=== PATIENT | female | born 1985 | race Caucasian/White ===

== ENCOUNTER 2023-10-29 18:32 | Emergency (ER) | payer MEDICARE, SELFPAY ==
--- NOTE | ~2023-10-29 | XR_ITS ---
EXAMINATION: XR chest 1V portable 10/29/2023 19:51 INDICATION: Chest pain PROCEDURE: AP portable chest COMPARISON: No prior studies for comparison. FINDINGS: The lungs are clear. The cardiomediastinal silhouette is within normal limits. There are no pleural effusions. There is no pneumothorax suspected. IMPRESSION: 1: NO ACUTE CARDIOPULMONARY DISEASE. Reviewed, dictated and finalized at location A.
[2023-10-29 18:33] VITALS: BP 137/117; PULSE 77; RESP 16; TEMP 36.6; O2SAT 98
[2023-10-29 18:53] VITALS: PULSE 70
--- NOTE | 2023-10-29 18:58 | ECG_ITS ---
SEE SCANNED COPY FOR CONFIRMED REPORT MTDD
[2023-10-29 19:13] LABS: Basophils Absolute Auto 0.04 K/mm3 (0.00-0.10); Basophils Percent Auto 0.4 % (0.0-1.0); Eosinophils Absolute Auto 0.17 K/mm3 (0.02-0.50); Eosinophils Percent Auto 1.9 % (1.0-6.0); Hematocrit 40.3 % (35.0-49.0); Hemoglobin 13.5 g/dL (12.0-15.0); Immature Granulocyte Absolute 0.02 K/mm3 (0.00-0.00); Immature Granulocyte Percent A 0.2 % (0.0-0.0); Lymphocytes Absolute Auto 3.26 K/mm3 (1.10-4.50); Lymphocytes Percent Auto 35.7 % (18.0-42.0); Mean Corpuscular HGB Conc 33.5 g/dL (32-36); Mean Corpuscular Hemoglobin 30.5 pg (27.0-31.0); Mean Platelet Volume 9.5 fl (9.2-11.8); Monocytes Absolute Auto 0.65 K/mm3 (0.10-0.90); Monocytes Percent Auto 7.1 % (2.0-11.0); Neutrophils Absolute Auto 4.99 K/mm3 (1.70-7.20); Neutrophils Percent Auto 54.7 % (50.0-70.0); Platelet Count Result 337 K/mm3 (150-420); Red Blood Count 4.43 M/mm3 (4.20-5.40); White Blood Count 9.1 K/mm3 (4.8-10.8)
[2023-10-29 19:29] LABS: D Dimer 0.19 mg/L (0.19-0.50); INR 0.9; Partial Thromboplastin Time 24.3 Sec (23.9-30.70); Prothrombin Time 10.3 Seconds (9.50-12.1)
[2023-10-29 19:39] LABS: Alanine Aminotransferase 27 U/L (14-59); Albumin Level 3.5 g/dL (3.4-5.0); Alkaline Phosphatase 57 U/L (46-116); Anion Gap 10 mmol/L (4-12); Aspartate Amino Transferase < 10 U/L (15-37); Bilirubin,Total 0.3 mg/dL (0.00-1.00); Blood Urea Nitrogen 13 mg/dL (7-18); Calcium 8.9 mg/dL (8.5-10.1); Carbon Dioxide 27 mmol/L (21-32); Chloride 106 mmol/L (98-108); Estimated CRCL calculation 88 ml/min; Estimated Glomerular Filt Rate > 60; Glucose 91 mg/dL (70-99); Lipase 15 U/L (16-77); NT Pro B Type Natriuretic Pept 42 pg/mL (0-125); Osmolality Calculated 296 mOsm/kg (285-295); Potassium 3.7 mmol/L (3.5-5.1); Sodium 143 mmol/L (136-145); Total Protein 6.9 g/dL (6.4-8.2)
[2023-10-29 19:41] LABS: Troponin I < 4.0 ng/L (0.00-60.4)
[2023-10-29 19:43] LABS: Appearance Urine Clear (Clear); Bilirubin Urine Negative (Negative); Blood Urine 2+ (Negative); Color Urine Yellow (Yellow); Glucose Urine UA Negative (Negative); Ketones Urine Negative (Negative); Leukocyte Esterase Ur Negative LEU/UL (Negative); Nitrate Urine Negative (Negative); Protein Urine Negative (Negative); Specific Grav Ur >= 1.030 (1.010-1.020); Urobilinogen Urine 0.2 mg/dL (0.2-1.0)
[2023-10-29 19:49] LABS: Add Urine Microscopic? YES; Bacteria Urine 1+ /hpf; RBC Urine 21-50 /hpf (0-2); Squamous Epithelial Cell Urine Moderate /hpf (Few); WBC Urine 0-3 /hpf (0-3)
[2023-10-29 19:51] LABS: Mucus Urine Few /lpf
--- NOTE | 2023-10-29 20:07 | ED.CHESTPAIN ---
HPI - Chest Pain General Chief Complaint: Chest Pain Stated Complaint: chest pain Time Seen by Provider: 10/29/23 18:34 Source: patient Mode of arrival: ambulatory Limitations: no limitations History of Present Illness HPI narrative: this is a 38-year-old female with no significant coronary artery history presents with a reproducible chest pain with palpation with no shortness of breath no nausea vomiting no diaphoresis no flank pain no fever chills no abdominal pain no dysuria or hematuria. complaint: chest discomfort Onset (ago): day(s) Timing of current episode: episodic Prior episodes: Yes Onset: during rest Pain radiation: none Severity: mild Related Data Home Medications Medication Instructions Recorded Confirmed levothyroxine 50 mcg tablet 50 mcg PO DAILY 10/29/23 10/29/23 Allergies Allergy/AdvReac Type Severity Reaction Status Date / Time Penicillins Allergy Hives Verified 10/29/23 18:39 Review of Systems Review of Systems: All systems reviewed & are unremarkable except as noted in HPI and below PMFSH Past Medical History Medical History Patient denies medical problems Exam Const: General: healthy appearing Nutritional Appearance: well nourished Orientation/consciousness: patient oriented x3 Limitations: no limitations Chest: Chest palpation & inspection: normal inspection of the chest Resp: Effort & Inspection: normal respiratory effort Auscultation: clear to auscultation bilaterally Cardio: Rate: regular rate Rhythm: regular rhythm GI: GI Palp: Yes Soft to palpation Auscultation: normal bowel sounds Urinary Catheter: Urinary Catheter: patent and draining Back/Spine/Pelvis: Back: no CVA tenderness Skin: General skin exam: normal color Rashes: no rashes Wounds: no wounds Neuro: General: patient oriented x3, moves all extremities and no meningeal signs Extrem: Other: reproducible chest pain with palpation Course Course Emergency Course: patient had normal EKG with normal sinus rhythm troponins were negative blood work was unremarkable UA did show that she has urinary tract infection and a dose of Macrobid was given. Vital Signs Vital signs: Vital Signs Temperature 36.6 C 10/29/23 18:33 Pulse Rate 77 10/29/23 18:33 Respiratory Rate 16 10/29/23 18:33 Blood Pressure 137/117 H 10/29/23 18:33 Pulse Oximetry 98 10/29/23 18:33 Oxygen Delivery Room Air 10/29/23 18:33 Temperature 36.6 C 10/29/23 18:33 Pulse Rate 70 10/29/23 18:53 Respiratory Rate 16 10/29/23 18:33 Blood Pressure 137/117 H 10/29/23 18:33 Pulse Oximetry 98 10/29/23 18:33 Oxygen Delivery Room Air 10/29/23 18:33 MDM - Chest Pain Lab Data 10/29/23 19:09 10/29/23 19:09 Labs: Lab Results 10/29/23 10/29/23 10/29/23 Range/Units 19:08 19:09 19:40 WBC 9.1 (4.8-10.8) K/mm3 RBC 4.43 (4.20-5.40) M/mm3 Hgb 13.5 (12.0-15.0) g/dL Hct 40.3 (35.0-49.0) % MCV 91.0 (78.0-102.0) fL MCH 30.5 (27.0-31.0) pg MCHC 33.5 (32-36) g/dL RDW 12.0 (11.6-14.4) % Plt Count 337 (150-420) K/mm3 MPV 9.5 (9.2-11.8) fl Immature Gran % (Auto) 0.2 H (0.0-0.0) % Neut % (Auto) 54.7 (50.0-70.0) % Lymph % (Auto) 35.7 (18.0-42.0) % [place] % (Auto) 7.1 (2.0-11.0) % Eos % (Auto) 1.9 (1.0-6.0) % Baso % (Auto) 0.4 (0.0-1.0) % Lymph # (Auto) 3.26 (1.10-4.50) K/mm3 [place] # (Auto) 0.65 (0.10-0.90) K/mm3 Eos # (Auto) 0.17 (0.02-0.50) K/mm3 Baso # (Auto) 0.04 (0.00-0.10) K/mm3 Abs Immat Gran (auto) 0.02 H (0.00-0.00) K/mm3 Absolute Neuts (auto) 4.99 (1.70-7.20) K/mm3 Absolute Nucleated RBC 0.00 (0.00-0.00) K/mm3 Nucleated RBC % 0.0 (0-0.0) % PT 10.3 (9.50-12.1) Seconds INR 0.9 APTT 24.3 (23.9-30.70) Sec D-Dimer 0.19 (0.19-0.50) mg/L Sodium 143 (136-145) mmol/L [place]
[2023-10-29] MEDS: NITROFURANTOIN MONOHYD MACROCR 100 MG CAP PO (20:22)
== END 2023-10-29 20:42 | disposition home or self-care (01) ==
PROVIDERS: Emergency Provider Emergency Medicine; PCP Nurse Practitioner Family
DX: R07.89 Other chest pain (principal); N39.0 Urinary tract infection, site not specified
CPT/HCPCS: 36415; 71045; 80053; 81001; 83690; 83880; 84484; 85025; 85380; 85610; 85730; 93005; 99284; A9270

== ENCOUNTER 2024-09-16 21:47 | Emergency (ER) | payer MEDICARE, SELFPAY ==
[2024-09-16 21:47] VITALS: BP 142/92; PULSE 79; RESP 18; TEMP 36.9; O2SAT 99
[2024-09-16 22:12] LABS: Amphetamine Screen Urine Negative (Negative); Barbiturate Screen Urine Negative (Negative); Benzodiazepines Screen Urine Negative (Negative); Cannabinoid Screen Urine Negative (Negative); Cocaine Screen Urine Negative (Negative); Methadone Screen Urine Negative (Negative); Opiate Screen Urine Negative (Negative); Phencyclidine Screen Urine Negative (Negative)
--- NOTE | 2024-09-16 22:42 | ED.GENADULT ---
HPI - General Adult General Chief complaint: Environmental Exposure Stated complaint: exposure Time Seen by Provider: 09/16/24 21:51 Source: patient Mode of arrival: ambulatory Limitations: no limitations History of Present Illness HPI narrative: Patient is a 39-year-old female with possible exposure to methamphetamine gases this evening. She is feeling anxious and worried about the exposure possibility. PD was called by family. Onset (ago): hour(s) ( One) Location: mouth Radiation: non-radiation Severity: mild Severity scale (1-10): 2 Quality: burning Pain Consistency: intermittent Relieving factors: none Exacerbating factors: none Associated symptoms: denies other symptoms Treatments prior to arrival: none Related Data Home Medications ?Medication ?Instructions ?Recorded ?Confirmed ?Last Taken ?Type levothyroxine 50 mcg tablet 50 mcg PO DAILY 10/29/23 10/29/23 Unknown History Allergies Allergy/AdvReac Type Severity Reaction Status Date / Time Penicillins Allergy Hives Verified 09/16/24 22:06 Review of Systems Review of Systems: All systems reviewed & are unremarkable except as noted in HPI and below Constitutional: Constitutional: Reports no additional constitutional complaints Eyes: Eyes: Reports no additional eye complaints ENT: Reports system reviewed and no additional complaints, except as documented Cardiovascular: Cardiovascular: Reports no additional cardiovascular complaints Respiratory: Respiratory: Reports no additional respiratory complaints Gastrointestinal: Gastrointestinal: Reports no additional gastrointestinal complaints Genitourinary: Genitourinary: Reports no additional female genitourinary complaints Musculoskeletal: Musculoskeletal: Reports no additional musculoskeletal complaints Integumentary/Breasts: Skin/Breast: Reports system reviewed and no additional complaints, except as docu Neurologic: Reports system reviewed and no additional complaints, except as documented Psychiatric: Psychiatric: Reports no additional psychiatric complaints Endocrine: Endocrine: Reports no additional endocrine complaints Hematologic/Lymphatic: Hematologic/Lymphatic: Reports no additional hematologic/lymphatic complaints Allergic/Immunologic: Allergic/Immunologic: Reports no additional allergic/immunologic complaints [facility] Past Medical History Medical History Patient denies medical problems Exam Const: General: cooperative, healthy appearing and comfortable HENMT: Head: normal to inspection, No palpable skull fracture present and normocephalic Eyes: General: appearance normal, both eyes and all related structures Visual Renner: normal visual renner by confrontation Alignment and Position: alignment normal Neck: Neck: normal visual inspection, full ROM and no lymphadenopathy Chest: Chest palpation & inspection: normal inspection of the chest and normal palpation of entire chest wall Resp: Effort & Inspection: normal respiratory effort, able to speak in complete sentences and not labored Cardio: Jugular venous distension: no JVD Palpation: normal PMI Rate: regular rate Rhythm: regular rhythm Heart sounds: S1 normal heart sound present and S2 normal heart sound present GI: Inspection: normal to inspection GI Palp: No abdominal tenderness and No Abdominal aortic bruit present Back/Spine/Pelvis: Back: no CVA tenderness, No CVA tenderness, No mass and No erythema Skin: General skin exam: normal color, no rashes or lesions noted and elasticity normal Neuro: General: oriented to person, oriented to place, oriented to time, patient oriented x3, gait normal, tone normal and moves all extremities Extrem: General: normal to inspection, full ROM and capillary refill normal Psych: Appearance: grossly normal, well kempt and not disheveled Mental Status: mental status grossly normal Course Vital Signs Vital signs: Vital Signs Temperature 36.9 C 09/16/24 21:47 Pulse Rate 79 09/16/24 21:47 Respiratory Rate 18 09/16/24 21:47 Blood Pressure 142/92 H 09/16/24 21:47 Pulse Oximetry 99 09/16/24 21:47 Oxygen Delivery Room Air 09/16/24 21:47 Temperature 36.9 C 09/16/24 21:47 Pulse Rate 79 09/16/24 21:47 Respiratory Rate 18 09/16/24 21:47 Blood Pressure 142/92 H 09/16/24 21:47 Pulse Oximetry 99 09/16/24 21:47 Oxygen Delivery Room Air 09/16/24 21:47 Medical Decision Making [facility] Narrative Medical decision making narrative: patient is a 3-year-old female with possible exposure to methamphetamine this evening. We will do urine drug screen. We will send Xanax to the pharmacy for her anxiety. She is driving this evening. Vital Signs Vital Signs: Vital Signs Temperature 36.9 C 09/16/24 21:47 Pulse Rate 79 09/16/24 21:47 Respiratory Rate 18 09/16/24 21:47 Blood Pressure 142/92 H 09/16/24 21:47 Pulse Oximetry 99 09/16/24 21:47 Oxygen Delivery Room Air 09/16/24 21:47 Temperature 36.9 C 09/16/24 21:47 Pulse Rate 79 09/16/24 21:47 Respiratory Rate 18 09/16/24 21:47 Blood Pressure 142/92 H 09/16/24 21:47 Pulse Oximetry 99 09/16/24 21:47 Oxygen Delivery Room Air 09/16/24 21:47 Lab Data Lab results reviewed: Yes I reviewed the patient's lab results. Labs: Lab Results 09/16/24 Range/Units 22:00 Urine Opiates Screen Negative (Negative) Urine Methadone Screen Negative (Negative) Ur Barbiturates Screen Negative (Negative) Ur Phencyclidine Scrn Negative (Negative) Ur Amphetamine Screen Negative (Negative) U Benzodiazepines Scrn Negative (Negative) Urine Cocaine Screen Negative (Negative) U Cannabinoids Screen Negative (Negative) Discharge Plan Discharge Clinical Impression: Inhalation of smoke, Anxiety Patient Disposition: Home, Self-Care Condition: Stable Instructions: Smoke Inhalation (ED), Anxiety (ED) Patient Language: Surinamese Prescriptions: New alprazolam [Xanax] 0.5 mg tablet 0.5 mg PO BID PRN (Reason: anxiety) Qty: 10 0RF Rx Instructions: 1/2-1 tab per dose No Action levothyroxine 50 mcg Tablet 50 mcg PO DAILY Follow-up/Referrals: Renner,Malinda Lilly APN [Primary Care Provider] - Time of Disposition: 22:50
[2024-09-16 23:05] VITALS: BP 125/75; PULSE 72; RESP 18; O2SAT 98
== END 2024-09-16 23:05 | disposition home or self-care (01) ==
PROVIDERS: Emergency Provider Emergency Medicine; PCP Nurse Practitioner Family
DX: F41.9 Anxiety disorder, unspecified (principal); T59.811A Toxic effect of smoke, accidental (unintentional), initial encounter
CPT/HCPCS: 80307; 99283